=== PATIENT | female | born 1935 | race Caucasian/White ===

== ENCOUNTER → 2018-12-29 | Outpatient (CLI) | payer MEDICARE | END | disposition home or self-care (01) | LOC: WOUND 10:21 | PROVIDERS: ATTEND Internal Medicine | DX: L97.111 Non-pressure chronic ulcer of right thigh limited to breakdown of skin (principal); L97.121 Non-pressure chronic ulcer of left thigh limited to breakdown of skin; L97.811 Non-pressure chronic ulcer of other part of right lower leg limited to breakdown of skin; S70.2 Other superficial injuries of hip; S70.341A External constriction, right thigh, initial encounter; S80.2 Other superficial injuries of knee; X30.XXXA Exposure to excessive natural heat, initial encounter; Y93.89 Activity, other specified; Y92.89 Other specified places as the place of occurrence of the external cause; Y99.8 Other external cause status | CPT/HCPCS: 97597; 97598; G0463 ==

== ENCOUNTER 2019-01-05 10:44 | Outpatient (CLI) | payer MEDICARE | END 2019-01-05 23:59 | disposition home or self-care (01) | LOC: WOUND 10:44 | PROVIDERS: ATTEND Internal Medicine | DX: T24.312D Burn of third degree of left thigh, subsequent encounter (principal); T24.311D Burn of third degree of right thigh, subsequent encounter; T24.301D Burn of third degree of unspecified site of right lower limb, except ankle and foot, subsequent encounter; T21.32XD Burn of third degree of abdominal wall, subsequent encounter; T31.0 Burns involving less than 10% of body surface; Z90.710 Acquired absence of both cervix and uterus; M19.90 Unspecified osteoarthritis, unspecified site; X10.1XXD Contact with hot food, subsequent encounter | CPT/HCPCS: 16030; 97597; 97598 ==

== ENCOUNTER 2019-01-12 08:53 | Outpatient (CLI) | payer MEDICARE | END 2019-01-12 23:59 | disposition home or self-care (01) | LOC: WOUND 08:53 | PROVIDERS: ATTEND Internal Medicine | DX: T24.312D Burn of third degree of left thigh, subsequent encounter (principal); T24.311D Burn of third degree of right thigh, subsequent encounter; T24.301D Burn of third degree of unspecified site of right lower limb, except ankle and foot, subsequent encounter; T21.32XD Burn of third degree of abdominal wall, subsequent encounter; T31.0 Burns involving less than 10% of body surface; M19.90 Unspecified osteoarthritis, unspecified site; Z90.710 Acquired absence of both cervix and uterus; X10.1XXD Contact with hot food, subsequent encounter | CPT/HCPCS: 16030; 97597; 97598 ==

== ENCOUNTER 2019-01-19 10:30 | Outpatient (CLI) | payer MEDICARE | END 2019-01-19 23:59 | disposition home or self-care (01) | LOC: WOUND 10:30 | PROVIDERS: ATTEND Internal Medicine | DX: T24.312D Burn of third degree of left thigh, subsequent encounter (principal); T24.311D Burn of third degree of right thigh, subsequent encounter; T24.301D Burn of third degree of unspecified site of right lower limb, except ankle and foot, subsequent encounter; T21.32XD Burn of third degree of abdominal wall, subsequent encounter; T24.221D Burn of second degree of right knee, subsequent encounter; T31.0 Burns involving less than 10% of body surface; L97.112 Non-pressure chronic ulcer of right thigh with fat layer exposed; L97.122 Non-pressure chronic ulcer of left thigh with fat layer exposed; L97.812 Non-pressure chronic ulcer of other part of right lower leg with fat layer exposed; M19.90 Unspecified osteoarthritis, unspecified site; Z90.710 Acquired absence of both cervix and uterus; X10.1XXD Contact with hot food, subsequent encounter | CPT/HCPCS: 16030; 97597; 97598 ==

== ENCOUNTER 2019-01-26 10:12 | Outpatient (CLI) | payer MEDICARE | END 2019-01-26 23:59 | disposition home or self-care (01) | LOC: WOUND 10:12 | PROVIDERS: ATTEND Internal Medicine | DX: L97.111 Non-pressure chronic ulcer of right thigh limited to breakdown of skin (principal); L97.121 Non-pressure chronic ulcer of left thigh limited to breakdown of skin; L97.811 Non-pressure chronic ulcer of other part of right lower leg limited to breakdown of skin; S70.2 Other superficial injuries of hip; S70.34 External constriction of thigh; S80.2 Other superficial injuries of knee; X30.XXXD Exposure to excessive natural heat, subsequent encounter | CPT/HCPCS: 16030; 97597; 97598 ==

== ENCOUNTER 2019-02-02 11:05 | Outpatient (CLI) | payer MEDICARE | END 2019-02-02 23:59 | disposition home or self-care (01) | LOC: WOUND 11:05 | PROVIDERS: ATTEND Internal Medicine | DX: L97.111 Non-pressure chronic ulcer of right thigh limited to breakdown of skin (principal); L97.121 Non-pressure chronic ulcer of left thigh limited to breakdown of skin; L97.811 Non-pressure chronic ulcer of other part of right lower leg limited to breakdown of skin; S70.2 Other superficial injuries of hip; S70.34 External constriction of thigh; S80.2 Other superficial injuries of knee; X30.XXXD Exposure to excessive natural heat, subsequent encounter | CPT/HCPCS: 16030; 97597; 97598 ==

== ENCOUNTER 2019-02-09 10:36 | Outpatient (CLI) | payer MEDICARE | END 2019-02-09 23:59 | disposition home or self-care (01) | LOC: WOUND 10:36 | PROVIDERS: ATTEND Internal Medicine | DX: T24.312D Burn of third degree of left thigh, subsequent encounter (principal); T24.311D Burn of third degree of right thigh, subsequent encounter; T21.32XD Burn of third degree of abdominal wall, subsequent encounter; S80.2 Other superficial injuries of knee; T31.0 Burns involving less than 10% of body surface; M19.90 Unspecified osteoarthritis, unspecified site; Z90.710 Acquired absence of both cervix and uterus; X10.1XXD Contact with hot food, subsequent encounter | CPT/HCPCS: 16030; 97597; 97598 ==

== ENCOUNTER → 2019-02-16 | Outpatient (CLI) | payer MEDICARE | END | disposition home or self-care (01) | LOC: WOUND 10:20 | PROVIDERS: ATTEND Internal Medicine | DX: T24.312D Burn of third degree of left thigh, subsequent encounter (principal); T24.311D Burn of third degree of right thigh, subsequent encounter; T21.32XD Burn of third degree of abdominal wall, subsequent encounter; S80.2 Other superficial injuries of knee; T31.0 Burns involving less than 10% of body surface; M19.90 Unspecified osteoarthritis, unspecified site; Z90.710 Acquired absence of both cervix and uterus; X10.1XXD Contact with hot food, subsequent encounter | CPT/HCPCS: 16020 ==

== ENCOUNTER 2019-03-09 10:30 | Outpatient (CLI) | payer MEDICARE | END 2019-03-09 23:59 | disposition home or self-care (01) | LOC: WOUND 10:30 | PROVIDERS: ATTEND Internal Medicine | DX: T24.312D Burn of third degree of left thigh, subsequent encounter (principal); T24.311D Burn of third degree of right thigh, subsequent encounter; T21.32XD Burn of third degree of abdominal wall, subsequent encounter; T31.0 Burns involving less than 10% of body surface; M19.90 Unspecified osteoarthritis, unspecified site; Z90.710 Acquired absence of both cervix and uterus; X10.1XXD Contact with hot food, subsequent encounter | CPT/HCPCS: G0463 ==